=== PATIENT | female | born 1940 | race Caucasian/White ===

== ENCOUNTER 2024-02-13 13:26 | Outpatient (AMB) | payer MEDICARE, SELFPAY ==
--- NOTE | 2024-02-13 13:36 | HO.NEPHOV_ITS ---
HPI HPI Comments History of Present Illness Details I had the privilege of seeing Caren in follow-up of her chronic kidney disease. She has no history of diabetes mellitus or hypertension. She does not use any herbs. She does not take any excessive nonsteroidal anti- inflammatories. She denies having dysuria, hematuria, flank pain. She has remote history of hepatitis C which was treated. Her mother's brother had renal issues. She denies taking any anti-inflammatory medications. She does not have any nausea, vomiting, diarrhea, pedal edema or orthostatic symptoms. She maintains good hydration. She feels well. [facility] Medical History (Updated 02/13/24 @ 13:48 by Terra Bailey MA) CKD (chronic kidney disease) stage 3, GFR 30-59 ml/min Surgical History (Updated 02/13/24 @ 13:48 by Terra Bailey MA) History of hysterectomy Family History (Updated 02/13/24 @ 13:49 by Terra Bailey MA) Daughter Breast cancer Mother Abdominal aneurysm Father Meningitis Sister COPD (chronic obstructive pulmonary disease) Social History Alcohol intake: former Patient Tobacco Use Status: Never used Tobacco Vital Signs 02/13/24 13:38 Height 5 ft 6 in Weight 145 lb 2 oz BMI 23.4 BP 130/70 Blood Pressure Location Lt brachial Position Sitting Pulse 74 Pulse Source Pulse Oximeter Pulse Oximetry (%) 96 Oxygen Delivery Method Room Air Physical Exam Const General: comfortable and no acute distress Orientation/consciousness: patient oriented x3 HEENT Head: Yes normocephalic Mouth: Normal oral and palatal mucosa present Eyes EOM: EOMs intact bilaterally Neck Neck: Yes supple Resp Auscultation: clear to auscultation bilaterally Cardio Jugular venous distension: no JVD Rate: regular rate GI Palpation (GI): Soft to palpation Auscultation: normal bowel sounds General: Yes no CVA tenderness Back/Spine/Pelvis Back: no CVA tenderness Skin General skin exam: no rashes or lesions noted Neuro General: patient oriented x3 and moves all extremities Extrem General: Yes no pedal edema Assessment & Plan Assessment & Plan (1) CKD (chronic kidney disease) stage 3, GFR 30-59 ml/min: Code(s): N18.30 - Chronic kidney disease, stage 3 unspecified Qualifiers: Chronic kidney disease stage 3 subtype: stage 3a (GFR 45-59) Qualified Code(s): N18.31 - Chronic kidney disease, stage 3a Carla Fabian has mild CKD. It probably is due to loss of GFR due to unknown renal insult the past along with age-related loss of renal function. Her serum creatinine was 1.24 in 2019, 1.29 in 2021 and 1.20 in 2022. Her blood pressure has been normal. She has no history of proteinuria. Previous renal ultrasound showed right kidney of 8.7 cm and left kidney of 8.3 cm. She avoids nonsteroidal anti-inflammatories and maintain good hydration. She has mild atherosclerotic vascular disease on her lower extremities. Her calcium and phosphorus were normal in the past. Repeat blood work & 24 hour urine for GFR ordered. Answered all questions. Follow-up appointment given. Orders: Orders Electrolytes Today N18.31 - Chronic kidney disease, stage 3a Phosphorus Today N18.31 - Chronic kidney disease, stage 3a Immunofixation Pnl, Serum Today N18.31 - Chronic kidney disease, stage 3a Creatinine Today N18.31 - Chronic kidney disease, stage 3a Blood Urea Nitrogen Today N18.31 - Chronic kidney disease, stage 3a Calcium Today N18.31 - Chronic kidney disease, stage 3a Parathyroid Hormone Intact Today N18.31 - Chronic kidney disease, stage 3a Creatinine Clearance Urine Today N18.31 - Chronic kidney disease, stage 3a Vitamin D 25-OH Total Today N18.31 - Chronic kidney disease, stage 3a Coding Level of Care Code Est Pt Level 4 (69164) Diagnoses Stage 3a chronic kidney disease N18.31 Chronic kidney disease stage 3 subtype: stage 3a (GFR 45-59) Results Reviewed Nephrology Results: No Data to Display
[2024-02-13 13:38] VITALS: BP 130/70; PULSE 74; O2SAT 96; BMI 23.4
== END 2024-02-13 14:30 | disposition home or self-care (01) ==
PROVIDERS: Visit Provider Internal Medicine Nephrology
DX: N18.31 Chronic kidney disease, stage 3a (principal)
CPT/HCPCS: 99214

== ENCOUNTER → 2024-02-13 13:26 | Outpatient (BNVA) | payer MEDICARE, SELFPAY | PROVIDERS: Visit Provider Internal Medicine Nephrology | DX: N18.31 Chronic kidney disease, stage 3a (principal) | CPT/HCPCS: 99212 ==

== ENCOUNTER 2024-02-13 14:39 | Outpatient (REF) | payer MEDICARE, SELFPAY | END 2024-02-13 14:40 | disposition home or self-care (01) | LOC: HO.HKASLDS 14:39 | PROVIDERS: Visit Provider Internal Medicine Nephrology | DX: Z13.89 Encounter for screening for other disorder (principal) ==

== ENCOUNTER 2024-08-06 13:14 | Outpatient (AMB) | payer MEDICARE, SELFPAY ==
--- NOTE | 2024-08-06 13:18 | HO.NEPHOV ---
Vital Signs 08/06/24 13:35 Height 5 ft 6 in Weight 143 lb 6 oz BMI 23.1 BP 122/68 Blood Pressure Location Lt brachial Position Sitting Pulse 73 Pulse Source Pulse Oximeter Pulse Oximetry (%) 98 Oxygen Delivery Method Room Air Intake Visit Reasons: 6 Month F/U- Conf Program Director Required: No Accompanied by: Self / Same As Patient Allergies No Known Allergies Allergy (Verified 08/06/24 13:37) HPI Comments Details: Caren was seen in follow-up of her chronic kidney disease. She has no history of diabetes mellitus or hypertension. She does not take any excessive nonsteroidal anti-inflammatories. She denies having dysuria, hematuria, flank pain. She has remote history of hepatitis C which was treated. Her mother's brother had renal issues. She denies taking any anti-inflammatory medications. She does not have any nausea, vomiting, diarrhea, pedal edema or orthostatic symptoms. She maintains good hydration. She feels well [facility] Medical History (Updated 02/13/24 @ 13:48 by Terra Bailey MA) CKD (chronic kidney disease) stage 3, GFR 30-59 ml/min Surgical History History of hysterectomy Family History Daughter Breast cancer Mother Abdominal aneurysm Father Meningitis Sister COPD (chronic obstructive pulmonary disease) Social History Alcohol intake: former Patient Tobacco Use Status: Never used Tobacco Review of Systems Const All systems reviewed & are unremarkable except as noted in HPI and below Physical Exam Vital Signs: Last Vital Signs Pulse 73 08/06/24 13:35 BP 122/68 08/06/24 13:35 Pulse Ox 98 08/06/24 13:35 Oxygen Delivery Method Room Air 08/06/24 13:35 BMI result Body Mass Index 23.1 Const General: comfortable and no acute distress Orientation/consciousness: patient oriented x3 HEENT Head: Yes normocephalic Mouth: Normal oral and palatal mucosa present Eyes EOM: EOMs intact bilaterally Neck Neck: Yes supple Resp Auscultation: clear to auscultation bilaterally Cardio Jugular venous distension: no JVD Rate: regular rate GI Palpation (GI): Soft to palpation Auscultation: normal bowel sounds General: Yes no CVA tenderness Back/Spine/Pelvis Back: no CVA tenderness Skin General skin exam: no rashes or lesions noted Neuro General: patient oriented x3 and moves all extremities Extrem General: Yes no pedal edema Results Reviewed Nephrology Results: No Data to Display Assessment & Plan Assessment & Plan (1) CKD (chronic kidney disease) stage 3, GFR 30-59 ml/min: Code(s): N18.30 - Chronic kidney disease, stage 3 unspecified Category: Medical Qualifiers: Chronic kidney disease stage 3 subtype: stage 3a (GFR 45-59) Qualified Code(s): N18.31 - Chronic kidney disease, stage 3a Plan Caren has CKD 3a. It probably is due to loss of GFR due to unknown renal insult the past along with age-related loss of renal function. She likely had renovascular disease given H/O PAD. Her serum creatinine was 1.24 in 2019, 1.29 in 2021 and 1.20 in 2022. Her blood pressure has been normal. She has no history of proteinuria. Previous renal ultrasound showed right kidney of 8.7 cm and left kidney of 8.3 cm. She avoids nonsteroidal anti-inflammatories and maintain good hydration. She has mild atherosclerotic vascular disease on her lower extremities. Her calcium and phosphorus were normal in the past. Her renal functions are stable. 24 hour urine for GFR is around 40 mls/minute. I did not make any medication changes today. All questions answered. Orders: Orders Creatinine 8 Months N18.31 - Chronic kidney disease, stage 3a Electrolytes 8 Months N18.31 - Chronic kidney disease, stage 3a Blood Urea Nitrogen 8 Months N18.31 - Chronic kidney disease, stage 3a Calcium 8 Months N18.31 - Chronic kidney disease, stage 3a Coding Level of Care Code Est Pt Level 4 (48176) Diagnoses Stage 3a chronic kidney disease N18.31 Chronic kidney disease stage 3 subtype: stage 3a (GFR 45-59)
[2024-08-06 13:35] VITALS: BP 122/68; PULSE 73; O2SAT 98; BMI 23.1
== END 2024-08-06 14:07 | disposition home or self-care (01) ==
PROVIDERS: Visit Provider Internal Medicine Nephrology
DX: N18.31 Chronic kidney disease, stage 3a (principal)
CPT/HCPCS: 99214

== ENCOUNTER → 2024-08-06 13:14 | Outpatient (BNVA) | payer MEDICARE, SELFPAY | PROVIDERS: Visit Provider Internal Medicine Nephrology | DX: N18.31 Chronic kidney disease, stage 3a (principal) | CPT/HCPCS: 99212 ==

== ENCOUNTER 2025-03-20 11:12 | Outpatient (REF) | payer MEDICARE, SELFPAY ==
--- OUTSIDE RECORDS SUMMARY | 2025-03-20 12:27 | XMS_ITS | Encounter Summary ---
Author Organization [facility] Address [address] [place] [address] Care Team Providers Care Vice Investigator Name Role Phone Dannie Coleman MD Unavailable Unavailable Jerry Taylor MD Primary Care Provider [phone] Encounter Details Date Type Department Care Team Description 08/15/2023 Orders Only Medical Records [address] [place] [address] Abstract, Provider Social History Tobacco Use Types Packs/Day Years Used Date Smoking Tobacco: Never Smokeless Tobacco: Never Alcohol Use Standard Drinks/Week Comments Yes 0 (1 standard drink = 0.6 oz pure alcohol) 2-3 times a week - 1 glass of wine Sex Assigned at Date Recorded Female 09/06/2020 6:[address] Job Start Date Occupation Industry Not on file Not on file Not on file documented as of this encounter Plan of Treatment Not on file documented as of this encounter Procedures Procedure Name Priority Date/Time Associated Diagnosis Comments OUTSIDE LAB Routine 08/07/2023 documented in this encounter Results * OUTSIDE LAB (08/07/2023) Provider Abstract LAB documented in this encounter Visit Diagnoses Not on filedocumented in this encounter Care Teams Vice Investigator Relationship Specialty Start Date End Date Dannie Coleman MD PCP - Manager Of Purchasing 02/11/10 Jerry Taylor MD [address] [place] [address] PCP - General Internal Medicine 01/22/18 documented as of this encounter
--- OUTSIDE RECORDS SUMMARY | 2025-03-20 12:27 | XMS_ITS | Encounter Summary ---
Author Organization [facility] Address [address] [place] [address] Care Team Providers Care Broach Operator Name Role Phone Jerry Taylor MD Primary Care Provider [phone] Encounter Details Date Type Department Care Team (Late st Contact Info) Description 08/19/2024 2:53 PM EDT Hospital Encounter TH HISTORIC ENCOUNTERS [facility]ASTERN CONVERSION ONLY Paul Emmanuel MD [address] [place] [id number] Social History Tobacco Use Types Packs/Day Years Used Date Smoking Tobacco: Never Assessed Housing Instability Answer Date Recorde d Are you worried that in the next 2 months you may not have stable housing? No 02/24/2025 Food Access & Nutrition Answer Date Rec orded Do you have access to a vari ety of food including fruits and vegetables? Yes 02/24/2025 Access to Healthcare Answer Date Record ed Within the last 3 months, ho w many times did you visit the emergency department for your medical care? 0 02/24/2025 Health Literacy Answer Date Recorded How often do you need to hav e someone help you when you read instructions, pamphlets, or other written material from your doctor or pharmacy? Never 02/24/2025 Caregiver: How often do you need to have someone help you when you read instructions, pamphlets, or other written material from your doctor or pharmacy? Not on file 02/24/2025 Financial Risk Answer Date Recorded How hard is it for you to pa y for the very basics like food, housing, medical care, and air conditioning / heating? Not very hard 02/24/2025 Transportation Answer Date Recorded Has the lack of transportati on kept you from meetings, work, or from getting things needed for daily living? No Has the lack of transportati on kept you from medical appointments or from getting medications? No 02/24/2025 Social Isolation Answer Date Recorded How often do you feel lonely or isolated from th ose around you? Never 02/24/2025 Food Risk Answer Date Recorded Within the past 12 months we worried whether our food would run out before we got money to buy more. Never true 02/24/2025 Within the past 12 months th e food we bought just didn't last and we didn't have money to get more. Never true 02/24/2025 Dependent Care Answer Date Recorded Do you need help finding or paying for care for your loved ones. For example, child support officer or elderly care for an older adult? No 02/24/2025 Education Answer Date Recorded Do you think completing more education or training, like finishing a GED, going to college, or learning a trade, would be helpful for you? No 02/24/2025 Employment and Income Answer Date Recor ded During the last four weeks, have you been actively looking for work? No 02/24/2025 Living Situation Answer Date Recorded What is your living situation? 0 02/24/2025 Interpersonal Safety Answer Date Record ed Physical Abuse 11/26/2024 Verbal Abuse 11/26/2024 Comments Unknown Sex and Gender Information Value Date Recorded Sex Assigned at Female 10/16/2024 11:48 AM EST Legal Sex Female 12:00 AM EST Gender Identity Female 10/16/2024 11:48 AM EST Sexual Orientation Straight 11/15/2024 5: 08 PM EST documented as of this encounter Last Filed Vital Signs Vital Sign Reading Time Taken Comments Blood Pressure 135/94 08/19/2024 3:09 PM EDT Sit ting Left arm Pulse 71 08/19/2024 3:09 PM EDT Temperature - - Respiratory Rate - - Oxygen Saturation - - Inhaled Oxygen Concentration - - Weight 66.2 kg (146 lb) 08/19/2024 3:09 PM EDT Height 167.6 cm (5' 6 ) 08/19/2024 3:09 PM EDT Body Mass Index 23.56 08/19/2024 3:09 PM EDT documented in this encounter Progress Notes * Paul Emmanuel MD - 08/19/2024 3:15 PM EDT Dear Jerry, Thank you very much for referring this patient for consultation. HPI: Patient is a very pleasant 83-year-old female, who is basically healthy, found to have mild persistent macrocytosis, without any significant anemia, patient had initial anemia workup which is unremarkable, patient referred to me for evaluation of her macrocytosis, patient denies any signif icant prior history any family history of hematological disorder ROS: GENERAL: No anorexia, intentional weight loss, fever, chills, night sweats or any significant fatigue HEENT no headache no visual symptom NECK: No lumps, goiter, pain or significant neck swelling RESPIRATORY: No significant cough or shortness of breath CARDIOVASCULAR: No chest pain. GI: No abdominal discomfort, blood in stools or black stools MUSCULOSKELETAL: No joint pain or swelling, back pain, or muscle pain. 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 aspirin EC 81 MG tablet, Take 1 tablet (81 mg total) by mouth daily., Disp: , Rfl: ??? levothyroxine (SYNTHROID) tablet 75 mcg, Take 1 tablet (75 mcg total) by mouth every morning je empty stomach., Disp: , Rfl: ??? venlafaxine (EFFEXOR) 75 MG tablet, Take 1 tablet (75 mg total) by mouth 2 (two) times a day., Disp: , Rfl: You are allergic to the following Date Reviewed: 08/19/2024 No active allergies PHYSICAL EXAM: BP (!) 135/94 (BP Location: Left arm) Pulse 71 Temp 97.8 ??F (36.6 ??C) (Temporal) Ht 5' 6 (1.676 m) Wt 66.2 kg (146 lb) SpO2 100% BMI 23.57 kg/m?? ECOG 0 APPEARANCE: Alert and oriented in no acute distress EYES: nonicteric sclera pink conjunctiva NECK: no significant palpable lymph node ORAL CAVITY: No erythema or exudates NECK: Neck supple, no cervical and supraclavicular adenopathy, HEART: normal S1 and S2 LUNG: clear to auscultation bilaterally LYMPH NODES: No palpable superficial adenopathy ABDOMEN: soft, nontender and no organomegaly appreciated. EXTREMITIES: No edema erythema or tenderness LABS: WBC 4.8, hemoglobin 13.2 g, hematocrit 42%, MCV 104.5 and platelet count 213 Folate more than 20 B12 level [address](R) 1. Macrocytosis MACROCYTOSIS Patient is a very pleasant 83-year-old female who has mild to moderate persistent macrocytosis without any significant anemia, patient has no B12 and folate deficiency, patient is not significantly symptomatic for anemia or has anemia. Most likely her macrocytosis is because of maturationdefect which is not uncommon after age 77 other possibility include her previous history of alcohol abuse but that was about 20 years ago, I gave her reassurance I told her she does not have mild dysplasia or any significant hematological issues but I would like to review peripheral smear as well as repeat B12 folate as well as liver function etc. and I will see her back in next 2 to 3 weeks for any further intervention if needed PLAN: Above labs today, return to office in 2 to 3 weeks for any further intervention Paul Emmanuel MD cc: Jerry Taylor MD documented in this encounter Plan of Treatment Upcoming Encounters Date Type Department Care Team (Late st Contact Info) Description 04/23/2025 2:45 PM EDT Office Visit [facility] [address] [place] [id number] Whitney Adames MD [address] [place] [address] 07/25/2025 1:00 PM EDT Office Visit Internal Medicine - [address] [phone] Jerry Taylor MD [address] [place] [id number] documented as of this encounter Visit Diagnoses Not on filedocumented in this encounter Care Teams Broach Operator Relationship Specialty Start Date End Date Jerry Taylor MD [address] [place] [id number] PCP - General 07/16/24 documented as of this encounter
--- OUTSIDE RECORDS SUMMARY | 2025-03-20 12:27 | XMS_ITS | Clinical Summary ---
Author Organization [facility] Address [address] [place] [address] Care Team Providers Care Waiter/Waitress First Class Name Role Phone Dannie Coleman MD [facility] Jerry Taylor MD Primary Care Provider [phone] Allergies No known active allergies Medications Medication Sig Dispensed Refills Start Date End Date Status levothyroxine (SYNTHROID, LEVOTHROID) 75 MCG tablet Take 75 mcg by mouth daily. 0 Active venlafaxine (EFFEXOR-XR) 75 MG 24 hr capsule Take 1 Capsule by mouth daily. 0 04/18/2023 Active aspirin 81 MG EC tabletIndications:PAD (peripheral artery disease) ([facility]) Take 1 Tablet by mouth daily. 30 Tablet 5 01/09/2024 Active Active Problems Problem Noted Date Medical orders for life-sustaining treat ment (MOLST) form in chart 07/11/2023 Overview: MOLST form completed 07/11/2023 Cardiopulmonary resuscitation - do not resuscitate Ventilation for a patient in respiratory distress - intubate and ventilate and use noninvasive ventilation (CPAP) - SHORT TERM ONLY Transfer to hospital - do not transfer to hospital (unless needed for comfort) Dialysis - undecided Artificial nutrition - no artificial nutrition Artificial hydration - use artificial hydration but short term only PAD (peripheral artery disease) 07/11/20 Overview: 20-49% bilaterally 06/2023 Anxiety disorder 04/16/2018 Overview: External telehealth psych. Cataract of both eyes 04/16/2018 History of basal cell carcinoma 04/16/20 Overview: 01/21/09 L upper chest CKD (chronic kidney disease) stage 3, GF R 30-59 ml/min 04/16/2018 Diverticulosis of colon 04/16/2018 Hyperlipidemia 04/16/2018 Hypothyroidism 04/16/2018 Overview: LEvothyroxine 75 mcg History of squamous cell carcinoma 04/16 Overview: 04/08/11 distal L leg Fatty liver 04/16/2018 History of hepatitis C 04/16/2018 Depression 04/16/2018 Raynaud's disease 04/16/2018 History of traumatic fracture of lumbar vertebral body 04/16/2018 Panic disorder without agoraphobia 04/16 History of cervical dysplasia 04/16/2018 Resolved Problems Problem Noted Date Resolved Date History of rib fracture 04/16/2018 10/18/20 Overview: Closed rib fracture Immunizations Name Administration Dates Next Due Pneumoccoccal(Adult) Polysaccharide PPSV23 04/25 Pneumococcal Conjugate PCV-13 03/23/2015 Tdap 04/25/2018 Family History Medical History Relation Name Comments CAD Brother Anxiety CA Breast Daughter Metastatic age 46. Anxiety Meningitis Father Aortic Aneurysm Mother Anxiety Heart Disease Sister Heart Disease Son Stroke Relation Name Status Comments Brother Daughter Father Mother Sister Son Social History Tobacco Use Types Packs/Day Years Used Date Smoking Tobacco: Never Smokeless Tobacco: Never Tobacco Cessation:Counseling Given: Not Answered Alcohol Use Standard Drinks/Week Comments Yes 0 (1 standard drink = 0.6 oz pure alcohol) 2-3 times a week - 1 glass of wine Sex Assigned at Date Recorded Female 09/06/2020 6:59 PM EST Job Start Date Occupation Industry Not on file Not on file Not on file Last Filed Vital Signs Vital Sign Reading Time Taken Comments Blood Pressure 125/73 08/28/2024 9:33 AM EDT Pulse 69 08/28/2024 9:33 AM EDT Temperature 37.1 ??C (98.7 ??F) 10/18/2018 1:13 PM ES T Respiratory Rate 16 08/23/2023 2:31 PM EDT Oxygen Saturation 98% 06/24/2022 11:14 AM EDT Inhaled Oxygen Concentration - - Weight 64.9 kg (143 lb) 08/28/2024 9:33 AM EDT Height 167.6 cm (5' 6 ) 08/28/2024 9:33 AM EDT Body Mass Index 23.08 08/28/2024 9:33 AM EDT Plan of Treatment Health Maintenance Due Date Last Done Comments Covid-19 Vaccine (#1) 03/09/1941 MAMMOGRAM 09/18/2024 09/18/2023, 12/2021, 09/01/2021, Additional history exists INFLUENZA (Season Ended) 2025 10/18/2018 (Refu sed) DEPRESSION SCREEN 07/11/2025 07/11/2024, , 06/24/2022, Additional history exists FALL RISK ASSESSMENT 07/11/2025 07/11/2024 (Completed), 07/11/2023 (Completed), 06/24/2022 (Completed), Additional history exists BONE DENSITY SCREENING 08/17/2025 , 07/03/2018, 05/29/2015 (External Completion) DTAP/TDAP/TD (2 - Td or Tdap) 04/25/2028 04/25/2018 CHOLESTEROL SCREENING 01/08/2029 01/09/2024 , 05/31/2023, 05/25/2022, Additional history exists PNEUMOCOCCAL VACCINE Completed 04/25/2018, 03/23/20 15 SHINGLES VACCINE Discontinued Advance Directives For more information, please contact: [phone] Documents on File Type Date Recorded Patient Forepart Reducer Expl al[facility] Health Care Proxy 03/21/2023 8:18 AM HEALT H CARE PROXY Latest Code Status on File Code Status Date Activated Date Inactivated Comments Other - see comment 07/11/2023 11:[address] form completed 07/11/2023 Cardiopulmonary resuscitation - do not resuscitate Ventilation for a patient in respiratory distress - intubate and ventilate and use noninvasive ventilation (CPAP) - SHORT TERM ONLY Transfer to hospital - do not transfer to hospital (unless needed for comfort) Dialysis - undecided Artificial nutrition - no artificial nutrition Artificial hydration - use artificial hydration but short term only Care Teams Waiter/Waitress First Class Relationship Specialty Start Date End Date Dannie Coleman MD PCP - Technical Support Internship 02/11/10 Jerry Taylor MD [address] [place] [id number] PCP - General Internal Medicine 01/22/18
--- OUTSIDE RECORDS SUMMARY | 2025-03-20 12:27 | XMS_ITS | Encounter Summary ---
Author Organization [facility] Address [address] [place] [address] Care Team Providers Care Vocational Teacher Name Role Phone Jerry Taylor MD Primary Care Provider [phone] Encounter Details Date Type Department Care Team (Late st Contact Info) Description 08/19/2024 3:15 PM EDT Hospital Encounter TH HISTORIC ENCOUNTERS EASTERN CONVERSION ONLY Paul Emmanuel MD [address] [place] [address] Social History Tobacco Use Types Packs/Day Years Used Date Smoking Tobacco: Never Smokeless Tobacco: Never Alcohol Use Standard Drinks/Week Comments Yes 0 (1 standard drink = 0.6 oz pur e alcohol) socially Housing Instability Answer Date Recorde d Are [...] for your loved ones. For example, child protective services specialist or elderly care for an older adult? [...] Physical Abuse 11/26/2024 Verbal Abuse 11/26/2024 Comments No Sex and Gender Information Value Date Recorded Sex Assigned at Female 10/16/2024 11:48 AM EST Legal Sex Female 12:00 AM EST Gender Identity Female 10/16/2024 11:48 AM EST Sexual Orientation Straight 11/15/2024 5: 08 PM EST documented as of this encounter Plan of Treatment Upcoming Encounters Date Type Department Care Team (Late st Contact Info) Description 04/23/2025 2:45 PM EDT Office Visit Breast Care Center [facility] [address] [place] [address] Whitney Adames MD [address] [place] [address] 07/25/2025 1:00 PM EDT Office Visit Internal Medicine - [address] [address] Jerry Taylor MD [address] [place] [address] documented as of this encounter Visit Diagnoses Not on filedocumented in this encounter Care Teams Vocational Teacher Relationship Specialty Start Date End Date Jerry Taylor MD [address] [place] [id number] PCP - General 07/16/24 documented as of this encounter
--- OUTSIDE RECORDS SUMMARY | 2025-03-20 12:27 | XMS_ITS | Encounter Summary ---
Author Organization [facility] Address [address] [place] [address] Care Team Providers Care Nursing Home Assistant Name Role Phone Dannie Coleman MD [facility] Jerry Taylor MD Primary Care Provider [phone] Encounter Details Date Type Department Care Team Description 02/12/2023 Marketing Analyst Report Medical Records [address] [place] [address] Triston Underwood MD Social History Tobacco Use Types Packs/Day Years [...] on file documented as of this encounter Visit Diagnoses Not on filedocumented in this encounter Care Teams Nursing Home Assistant Relationship Specialty Start Date End Date Dannie Coleman MD PCP - [facility] [employer] 02/11/10 Jerry Taylor MD [address] [place] [id number] PCP - General Internal Medicine 01/22/18 documented as of this encounter
--- OUTSIDE RECORDS SUMMARY | 2025-03-20 12:27 | XMS_ITS | Clinical Summary ---
Author Organization [facility] Address [address] [place] [address] Care Team Providers Care Fire Lieutenant Name Role Phone Jerry Taylor MD Primary Care Provider [phone] Allergies No known active allergies Medications Medication Sig Dispensed Refills Start Date End Date Status levothyroxine (SYNTHROID) tablet 75 mcg Take 1 tablet (75 mcg total) by mouth every morning on an empty stomach. 0 Active venlafaxine (EFFEXOR) 75 MG tablet Take 1 tablet (75 mg total) by mouth 2 (two) times a day. 0 Active aspirin EC 81 MG tablet Take 1 tablet (81 mg total) by mouth daily. 0 Active Active Problems No known active problems Family History Medical History Relation Name Comments Breast cancer Child Gallbladder disease Sister Relation Name Status Comments Child Sister Social History Tobacco Use Types Packs/Day Years Used Date Smoking Tobacco: Never Smokeless Tobacco: Never Tobacco Cessation:Counseling Given: Not Answered Alcohol Use Standard Drinks/Week Comments Not Currently 0 (1 standard drink = 0.6 oz pur e alcohol) Sex and Gender Information Value Date Recorded Sex Assigned at Not on file Gender Identity Not on file Sexual Orientation Not on file Job Start Date Occupation Industry Not on file Not on file Not on file Last Filed Vital Signs Vital Sign Reading Time Taken Comments Blood Pressure 129/73 09/04/2024 1:17 PM EDT Pulse 69 09/04/2024 1:17 PM EDT Temperature 37.2 ??C (98.9 ??F) 09/04/2024 1:17 PM ED T Respiratory Rate - - Oxygen Saturation 100% 09/04/2024 1:17 PM EDT Inhaled Oxygen Concentration - - Weight 64 kg (141 lb) 09/04/2024 1:17 PM EDT Height 167.6 cm (5' 6 ) 08/19/2024 3:09 PM EDT Body Mass Index 22.76 08/19/2024 3:09 PM EDT Plan of Treatment Health Maintenance Due Date Last Done Comments COVID-19 Vaccine (#1) 03/09/1941 Depression Screening 1954 Preventative Health Evaluation 1960 Shingrix-Zoster Vaccine (1 o f 2) 1992 Fall Risk Assessment 2007 Osteoporosis Screening (DEXA Scan) 2007 RSV Adult > 60+ Yrs or (1 - 1-dose 75+ series) 2017 Influenza Vaccine (#1) 2024 DTap / Tdap / Td (2 - Td or Tdap) 04/25/2028 04/25/2018 Pneumococcal Vaccine Completed 04/25/2018, 03/23/2015 Hepatitis B Vaccines Aged Out No long er eligible based on patient's age to complete this topic RSV Ped < 20 months Aged Out No longe r eligible based on patient's age to complete this topic Care Teams Fire Lieutenant Relationship Specialty Start Date End Date Jerry Taylor MD [address] [place] [address] PCP - General Internal Medicine 07/16/24
--- OUTSIDE RECORDS SUMMARY | 2025-03-20 12:27 | XMS_ITS | Encounter Summary ---
Author Organization [facility] Address [address] [place] [address] Care Team Providers Care Lead Mechanical Engineer Name Role Phone Dannie Coleman MD Unavailable Unavailable Jerry Taylor MD Primary Care Provider [phone] Encounter Details Date Type Department Care Team Description 07/29/2024 Orders Only Vascular Surgery - [place] [address] [place] [address] Shavon Rudolph MD [address] [facility] [address] [place] [address] PAD (peripheral artery disease) (HCC) Social History Tobacco Use Types Packs/Day Years [...] Procedure Name Priority Date/Time Associated Diagnosis Comments LOWER EXTREMITY ARTERY STUDY, COMPL WITH ROLAND Routine 07/26/2024 PAD (peripheral artery disease) (HCC) documented in this encounter Results * LOWER EXTREMITY ARTERY STUDY, COMPL WITH ROLAND (07/26/2024) 07/26/2024 Shavon Rudolph MD VASCULAR ULTRASO UND documented in this encounter Visit Diagnoses Diagnosis PAD (peripheral artery disease) (HCC) Unspecified disorders of arteries and arterioles documented in this encounter Care Teams Lead Mechanical Engineer Relationship Specialty Start Date End Date Dannie Coleman MD PCP - Lead Technical Writer 02/11/10 Jerry Taylor MD [address] [place] [phone] PCP - General Internal Medicine 01/22/18 documented as of this encounter
--- OUTSIDE RECORDS SUMMARY | 2025-03-20 12:27 | XMS_ITS | Encounter Summary ---
Author Organization [facility] Address [address] [place] [address] Care Team Providers Care Network Developer Name Role Phone Jerry Taylor MD Primary Care Provider [phone] Encounter Details Date Type Department Care Team (Late st Contact Info) Description 09/04/2024 1:01 PM EDT Hospital Encounter TH HISTORIC ENCOUNTERS EASTERN CONVERSION ONLY Paul Emmanuel MD [address] [place] [phone] Social History Tobacco Use Types Packs/Day Years [...] for your loved ones. For example, child neurologist or elderly care for an older adult? [...] Blood Pressure 129/73 09/04/2024 1:17 PM EDT Sitting Right arm Pulse 69 09/04/2024 1:17 PM EDT Temperature - - Respiratory Rate - - Oxygen Saturation - - Inhaled Oxygen Concentration - - Weight 64 kg (141 lb) 09/04/2024 1:17 PM EDT Height 167.6 cm (5' 6 ) 08/19/2024 3:09 PM EDT Body Mass Index 22.76 08/28/2024 9:33 AM EDT documented in this encounter Progress Notes * Paul Emmanuel MD - 09/04/2024 1:15 PM EDT CHIEF COMPLAINT: Follow-up IDENTIFIER:Caren Clayton is a 83 y.o. female. HPI: Patient is a very pleasant 83-year-old female who came for evaluation on macrocytosis couple weeks ago, my hematology workup is basically unremarkable for any underlying reason for her mildmacrocytosis without anemia ROS: Has been feeling very well No significant change from previous visit of 08/19/2024 PAST MEDICAL HISTORY: Peripheral vascular disease Chronic insufficiency Hypothyroidism Dyslipidemia Squamous cell carcinoma of the skin Anxiety/depression disorder Renal disease History of cervical dysplasia ? PAST SURGICAL HISTORY: Hysterectomy Mohs surgery ?? 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 FAMILY HISTORY: Noncontributory Current Outpatient Medications: ??? aspirin EC 81 [...] are allergic to the following Date Reviewed: 09/04/2024 No active allergies PHYSICAL EXAM: BP 129/73 (BP Location: Right arm) Pulse 69 Temp 98.9 ??F (37.2 ??C) (Temporal) Wt 64 kg (141lb) SpO2 100% BMI 22.76 kg/m?? ECOG 0 APPEARANCE: Alert and oriented x 3 in no acute distress EYES: nonicteric sclera pink conjunctiva ORAL CAVITY: No erythema or exudates NECK: Neck supple, no significant adenopathy, HEART: normal S1 and S2 LUNG: clear to auscultation bilaterally LYMPH NODES: No palpable superficial adenopathy ABDOMEN: soft, nontender and no organomegaly appreciated EXTREMITIES: No edema edema tenderness LABS: B12 level 442 Folate 8.8 SGOT 21, SGPT 22 and alk phos 89 with total bilirubin of 0.3 WBC 6.7, hemoglobin 12.6 g, hematocrit 39.4%, MCV 103.7 and platelet count 202 Peripheral smear basically unremarkable IMPRESSION: SNOMED CT(R) 1. Macrocytosis MACROCYTOSIS After reviewing history physical laboratory data I do not think patient has any significant hematological disorder she has not mild persistent macrocytosis without any significant anemia, most likelynormal variant or may be maturation issues in the bone marrow but since she does not have anemia she does not need any further workup. I gave her reassurance regarding her not having any significant hematological disorder and does not need any further hematology workup or follow-up PLAN: Check CBC once a year if there is significant drop in hemoglobin that is less than 10 g, refer patient back to me otherwise she does not need any follow-up Paul Emmanuel MD documented in this encounter Plan of Treatment Upcoming Encounters Date Type Department Care Team (Late st Contact Info) Description 04/23/2025 2:45 PM EDT Office Visit Breast Care Center [facility] [address] [facility] [address] [place] [id number] Whitney Adames MD [address] [address] [facility] [place] [address] 07/25/2025 1:00 PM EDT Office Visit Internal Medicine - [facility] [address] [place] [address] Jerry Taylor MD [address] [place] [address] documented as of this encounter Procedures Procedure Name Priority Date/Time Associated Diagnosis Comments ..MISCELLANEOUS REFERENCE LAB TEST 09/04/2024 documented in this encounter Results * Miscellaneous reference lab test (09/04/2024) us Provider Onbase LAB BLOOD ORDERABLES Final Re sult documented in this encounter Visit Diagnoses Not on filedocumented in this encounter Care Teams Network Developer Relationship Specialty Start Date End Date Jerry Taylor MD [address] [place] [phone] PCP - General 07/16/24 documented as of this encounter
--- OUTSIDE RECORDS SUMMARY | 2025-03-20 12:27 | XMS_ITS | Encounter Summary ---
Author Organization [facility] Address [address] [place] [address] Care Team Providers Care Qualified Craft Worker Electrician Name Role Phone Dannie Coleman MD [facility] Jerry Taylor MD Primary Care Provider [phone] Encounter Details Date Type Department Care Team Description 08/03/2021 Robotic Technician Report Medical Records [address] [place] [address] Charlene Tamayo MD Social History Tobacco Use Types Packs/Day [...] on filedocumented in this encounter Care Teams Qualified Craft Worker Electrician Relationship Specialty Start Date End Date Dannie Coleman MD PCP - Catering Assistant 02/11/10 Jerry Taylor MD [address] [place] [id number] PCP - General Internal Medicine 01/22/18 documented as of this encounter
--- OUTSIDE RECORDS SUMMARY | 2025-03-20 12:27 | XMS_ITS | Encounter Summary ---
Author Organization [facility] Address [address] [place] [address] Care Team Providers Care Wire Coater Name Role Phone Dannie Coleman MD Unavailable Unavailable Jerry Taylor MD Primary Care Provider [phone] Encounter Details Date Type Department Care Team Description 08/07/2023 Elementary Educator Report Medical Records [address] [place] [address] Charlene Tamayo MD Social History Tobacco Use [...] file Not on file Not on file COVID-19 Exposure Response Date Recorded In the last 10 days, have yo u been in contact with someone who was confirmed or suspected to have Coronavirus/COVID-19? No / Unsure 07/11/2023 10:21 AM EDT documented as of this encounter Plan of Treatment Not on file documented as of this encounter Visit Diagnoses Not on filedocumented in this encounter Care Teams Wire Coater Relationship Specialty Start Date End Date Dannie Coleman MD PCP - Cotton Washer 02/11/10 Jerry Taylor MD [address] [place] [address] PCP - General Internal Medicine 01/22/18 documented as of this encounter
--- OUTSIDE RECORDS SUMMARY | 2025-03-20 12:27 | XMS_ITS | Clinical Summary ---
Author Organization [facility] Address [address] [place] [address] Phone Care Team Providers Care Practice Representative Name Role Phone Jerry Taylor MD Primary Care Provider [phone] [phone] Allergies No known active allergies Medications venlafaxine XR (EFFEXOR-XR) 75 mg 24 hr capsule Take 1 capsule (75 mg total) by mouth 1 (one) time each day. AT DINNER TIME 3 Active levothyroxine (SYNTHROID, LEVOTHROID) 75 mcg tablet 1 tablet orally six days/week, take 1/2 tab on , or as direted 2 Active ALPRAZolam (XANAX) 0.5 mg tablet Take 1 tablet (0.5 mg total) by mouth at bedtime as needed for anxiety. Active aspirin 81 mg EC tablet Take 1 tablet (81 mg total) by mouth 1 (one) time each day. Active gentamicin (GARAMYCIN) 0.1 % ointment Apply topically 3 (three) times a day. 4 Active betamethasone dipropionate (DIPROSONE) 0.05 % cream Apply topically 2 (two) times a day. 4 Active Active Problems Problem Noted Date Diagnosed Date Malignant neoplasm of upper- outer quadrant of left breast in female, estrogen receptor positive (CMS/HCC V24, CMS/HCC V28) 10/23/2024 Assessment & Plan (03/03/2025 3:13 PM EDT): Patient will continue follow-up with her breast surgeon. She is up-to-date with a follow-up with oncologist. Hypothyroidism due to medication 08/07/2023 Overview (07/19/2024): Last Assessment & Plan: Clinically euthyroid. Reports good consistency taking rx appropriately. Will check labs & adjust rx as appropriate. To call/message via portal if hasn't heard from me with results within 1-2 weeks. If levels normal, will repeat labs yearly, sooner prn symptoms of thyroid dysfunction or > 10-15# weight change, or as otherwise clinically indicated. PAD (peripheral artery disease) ([facility] V24) Overview (07/19/2024): 20-49% bilaterally 06/2023 PAD (peripheral artery disease) ([facility] V24) Overview (10/02/2024): 20-49% bilaterally 06/2023 Assessment & Plan (03/03/2025 3:13 PM EDT): For now, continue aspirin 81 mg daily. Encouraged walking. Anxiety disorder 04/16/2018 Overview (07/19/2024): External telehealth psych. Cataract of both eyes 04/16/2018 Depressive disorder 04/16/2018 Diverticulosis of colon 04/16/2018 Fatty liver 04/16/2018 Hyperlipidemia 04/16/2018 Assessment & Plan (03/03/2025 3:13 PM EDT): Follow low-cholesterol diet. Will monitor lipid panel. Orders: Lipid panel with reflex to direct LDL; Future Aspartate aminotransferase; Future Alanine aminotransferase; Future Hypothyroidism 04/16/2018 Overview (07/19/2024): LEvothyroxine 75 mcg Assessment & Plan (03/03/2025 3:13 PM EDT): Continue current levothyroxine. Panic disorder without agoraphobia 04/16/2018 Raynaud's disease 04/16/2018 Stage 3 chronic kidney disease ([facility] V24, [facility] V28) 04/16/2018 Assessment & Plan (03/03/2025 3:13 PM EDT): Avoid NSAIDs. She has an upcoming appoint with nephrology. Will monitor electrolytes. Orders: Basic metabolic panel; Future Encounters Date Type Department Care Team Description 03/03/2025 2:30 PM EDT Office Visit Internal Medicine - [facility] [address] [place] [address] Jerry Taylor MD Malignant neoplasm of upper-outer quadrant of left breast in female, estrogen receptor positive ([facility] [place], [facility] V28) (Primary Dx); PAD (peripheral artery disease) ([facility] V24); Stage 3 chronic kidney disease, unspecified whether stage 3a or 3b CKD ([facility], [facility] V28); Hypothyroidism, unspecified type; Hyperlipidemia, unspecified hyperlipidemia type; Memory impairment from Last 3 Months Immunizations Name Administration Dates Next Due Pneumococcal conjugate 13 va lent (Prevnar 13, PCV13) 2mo and older 03/23/2015 Pneumococcal polysaccharide 23 valent (Pneumovax 23) 2yo and older 04/25/2018 Tdap Tetanus diptheria acell ular pertussis (Boostrix; Adacel) 7yo and older 04/25/2018 Surgical History Surgery Date Site/Laterality Comments HYSTERECTOMY PROCEDURE: HISTORICAL TOTAL HYSTERECTOMY WITH BSO COLONOSCOPY PROCEDURE: HISTORICAL COLONOSCOPY; COMMENT: hyperplastic polyp COLONOSCOPY 04/10/2012 PROCEDURE: HISTORICAL COLONOSCOPY; COMMENT: 10 year repeat TOTAL ABDOMINAL HYSTERECTOMY Medical History Medical History Date Comments Anxiety disorder 04/16/2018 DX:Anxiety diso rder; COMMENT: Follows with Dr Caruso Cataract of both eyes 04/16/2018 DX:Catarac t of both eyes CKD (chronic kidney disease) stage 3, GFR 30-59 ml/min ([facility] V24, [facility] V28) 04/16/2018 DX:CKD (chronic kidney disea se) stage 3, GFR 30-59 ml/min ([facility]) Depression 04/16/2018 DX:Depression Diverticulosis of colon 04/16/2018 DX:Diver ticulosis of colon Fatty liver 04/16/2018 DX:Fatty liver History of basal cell carcinoma 04/16/2018 DX:History of basal cell carcinoma; COMMENT: 01/21/09 L upper chest History of cervical dysplasia 04/16/2018 DX :History of cervical dysplasia History of hepatitis C 04/16/2018 DX:Histor y of hepatitis C History of rib fracture 04/16/2018 DX:Histo ry of rib fracture; COMMENT: Closed rib fracture History of squamous cell carcinoma 04/16/2018 DX:History of squamous cell carcinoma; COMMENT: 04/08/11 distal L leg History of traumatic fractur e of vertebra 04/16/2018 DX:History of traumatic frac ture of vertebra Hyperlipidemia 04/16/2018 DX:Hyperlipidemi a Hypothyroidism 04/16/2018 DX:Hypothyroidis m; COMMENT: LEvothyroxine 75 mcg Panic disorder without agoraphobia 04/16/2018 DX:Panic disorder without agoraphobia Raynaud's disease 04/16/2018 DX:Raynaud's d isease Medical orders for life-sust aining treatment (MOLST) form in chart 07/11/2023 DX:Medical orders for life-sustaining treatment (MOLST) form in chart; COMMENT: MOLST form completed 07/11/2023 Cardiopulmonary resuscitation - do not resuscitate Ventilation for a patient in respiratory distress - intubate and ventilate and use noninvasive ventilation (CPAP) - SHORT TERM ONLY Transfer to hospital - do not transfer to hospital (unless needed for comfort) Dialysis - undecided Artific* PAD (peripheral artery disea se) ([facility] V24) 07/11/2023 DX:PAD (peripheral artery di sease) ([facility]); COMMENT: 2048% bilaterally Family History Medical History Relation Name Comments Coronary artery disease Brother Anxi ety Breast cancer Daughter Metastatic age 46. Anxiety Other: Meningitis Father Other: Aortic Aneurysm Mother Anxie ty Other: Heart Disease Sister Other: Heart Disease Son Stroke Relation Name Status [...] care for your loved ones. For example, early childhood worker or elderly care for an older adult? [...] Orientation Straight 11/15/2024 5: 08 PM EST Obstetrics History Last Filed Vital Signs Vital Sign Reading Time Taken Comments Blood Pressure 111/72 03/03/2025 2:39 PM EDT aut o Pulse 65 03/03/2025 2:39 PM EDT Temperature 36.7 ??C (98.1 ??F) 12/10/2024 2:03 PM ES T Respiratory Rate 20 11/26/2024 11:06 AM EST Oxygen Saturation 100% 12/10/2024 2:03 PM EST Inhaled Oxygen Concentration - - Weight 67.2 kg (148 lb 1.6 oz) 03/03/2025 2:39 P M EDT Height 167.6 cm (5' 6 ) 03/03/2025 2:39 PM EDT Body Mass Index 23.9 03/03/2025 2:39 PM EDT Plan of Treatment Upcoming Encounters Date Type Department Care Team (Late st Contact Info) Description 04/23/2025 2:45 PM EDT Office Visit Breast Care Center [facility] [address] [place] [id number] Whitney Adames MD [address] [place] [address] 07/25/2025 1:00 PM EDT Office Visit Internal Medicine - [facility] [address], [place] [phone] Jerry Taylor MD [address] [place] [phone] Health Maintenance Due Date Last Done Comments COVID-19 Vaccine (#1) 1945 Hepatitis A Vaccines (1 of 2 - Risk 2-dose series) 1961 Zoster Vaccines (1 of 2) 1961 Hepatitis B Vaccines (1 of 3 - Risk 3-dose series) 2002 RSV Immunization Adult Patients (1 - 1-dose 75+ series) 2017 Medicare Annual Wellness Visit 10/09/2022 Influenza Vaccine (Season Ended) 2025 Falls Risk Assessment 11/26/2025 11/26/2024 , 07/11/2024 Depression Screening 02/24/2026 02/24/2025, 07/11/2024 Social Influencers of Health Screening 02/24/2026 02/24/2025 DTaP,Tdap,and Td Vaccines (2 - Td or Tdap) 04/25/2028 04/25/2018 Cholesterol Screening (Lipid Panel) 03/05/2030 03/05/2025, 01/09/2024 Osteoporosis Screening (Bone Density Screening) 08/17/2033 08/17/2023, 07/03/2018 Pneumococcal Vaccine: 50+ Years Completed 04/25/2018, 03/23/2015 HIB Vaccines Aged Out No longer eligi ble based on patient's age to complete this topic HPV Vaccines Aged Out No longer eligi ble based on patient's age to complete this topic IPV Vaccines Aged Out No longer eligi ble based on patient's age to complete this topic MMR Vaccines Aged Out No longer eligi ble based on patient's age to complete this topic Meningococcal ACWY Vaccine Aged Out N o longer eligible based on patient's age to complete this topic Meningococcal B Vaccine Aged Out No l onger eligible based on patient's age to complete this topic RSV Immunization Patients Under 20 months Aged Out No longer eligible b ased on patient's age to complete this topic Varicella Vaccines Aged Out No longer eligible based on patient's age to complete this topic Medical Devices Implanted Type Area Family Practice Physician Device Identifier Shelf Expiration Date Model / Serial / Lot Marker Tissue Breast Dual Trig 17x10 Ultrasound Enhanced - [id number] - [id number] Implanted:Qty: 1 on 10/14/2024 by Jalen Loco MD at [facility] Imaging Implants Left: Breast CR BARD PERIPHERAL VASCULAR [id number] 06/02/2027 [id number] / [id number] / Marker 18ga Magseed 7cm - [id number] - [id number] Implanted:Qty: 1 on 11/20/2024 by Toni Cash MD at [facility] Imaging Implants Left: Breast DEVICOR [employer] [id number] 05/05/2026 [id number] / [id number] Procedures Procedure Name Priority Date/Time Associated Diagnosis Comments LIPID PANEL WITH REFLEX TO DIRECT LDL Routine 03/05/2025 10:19 AM EDT Hyperlipidemia, unspecified hyperlipidemia type BASIC METABOLIC PANEL Routine 03/05/2025 10:19 AM EDT Stage 3 chronic kidney disease, unspecified whether stage 3a or 3b CKD (CMS/HCC V24, CMS/HCC V28) ASPARTATE AMINOTRANSFERASE Routine 03/05/2025 10:19 AM EDT Hyperlipidemia, unspecified hyperlipidemia type ALANINE AMINOTRANSFERASE Routine 03/05/2025 10:19 AM EDT Hyperlipidemia, unspecified hyperlipidemia type DEPRESSION SCREENING Routine 07/11/2024 FALLS RISK ASSESSMENT Routine 07/11/2024 DXA BONE DENSITY STUDY 1+ SITS AXIAL SKEL Routine 08/17/2023 2:28 PM EDT Encounter for screening for osteoporosis from Last 3 Months or Most Recently Relevant to Health Maintenance Results * (ABNORMAL) Lipid panel with reflex to direct LDL (03/05/2025 10:19 AM EDT) [facility] Cholesterol 206(H) 0 - 200 mg/dL LAB CHEMISTRY METHOD 03/05/2025 7:38 PM EDT [facility] Triglycerides 93 0 - 150 mg/dL LAB CHEMISTRY METHOD 03/05/2025 7:38 PM EDT [facility] HDL 62 >=40 mg/dL LAB CHEMISTRY METHOD 03/05/2025 7:38 PM EDT [facility] LDL Calculated 125(H) 0 - 100 mg/dL LAB CHEMISTRY METHOD 03/05/2025 7:38 PM EDT [facility] VLDL Cholesterol Christopher 18.6 mg/dL LAB CHEMISTRY METHOD 03/05/2025 7:38 PM EDT [facility] Non HDL Chol. (LDL+VLDL) 144 <145 mg/dL LAB CHEMISTRY METHOD 03/05/2025 7:38 PM EDT [facility] Chol/HDL Ratio 3.3 0.0 - 4.4 LAB CHEMISTRY METHOD 03/05/2025 7:38 PM EDT [facility] Blood Venous blood specimen / Unknown Venipuncture / Unknown 03/05/2025 10:19 AM EDT 03/05/2025 10:19 AM EDT Jerry Taylor MD LAB BLOOD ORDERABLES Kallie l Result Performing Organization Address City/[facility]/ZIP Co de Phone Number [facility] [address] [place] [address], [place] [phone] * Alanine aminotransferase (03/05/2025 10:19 AM EDT) ALT (SGPT) 22 10 - 60 unit/L LAB CHEMISTRY METHOD 03/05/2025 7:34 PM EDT [facility] Blood Venous blood specimen / Unknown Venipuncture / Unknown 03/05/2025 10:19 AM EDT 03/05/2025 10:19 AM EDT Jerry Taylor MD LAB BLOOD ORDERABLES Kallie l Result [facility] [address] [place] [address], [place] [phone] * Aspartate aminotransferase (03/05/2025 10:19 AM EDT) AST (SGOT) 16 10 - 42 unit/L LAB CHEMISTRY METHOD 03/05/2025 7:38 PM [facility] Blood Venous blood specimen / Unknown Venipuncture / Unknown 03/05/2025 10:19 AM EDT 03/05/2025 10:19 AM EDT Jerry Taylor MD LAB BLOOD ORDERABLES Kallie l Result [facility] [address] [place] [address], * (ABNORMAL) Basic metabolic panel (03/05/2025 10:19 AM EDT) Sodium 137 133 - 145 mmol/L LAB CHEMISTRY METHOD 03/05/2025 7:34 PM [facility] Potassium 4.8 3.5 - 5.5 mmol/L LAB CHEMISTRY METHOD 03/05/2025 7:34 PM [facility] Chloride 106 96 - 110 mmol/L LAB CHEMISTRY METHOD 03/05/2025 7:34 PM [facility] CO2 24 21 - 32 mmol/L LAB CHEMISTRY METHOD 03/05/2025 7:34 PM [facility] Anion Gap 7 3 - 11 LAB CHEMISTRY METHOD 03/05/2025 7:34 PM [facility] Glucose 84 70 - 100 mg/dL LAB CHEMISTRY METHOD 03/05/2025 7:34 PM [facility] BUN 26(H) 5 - 25 mg/dL LAB CHEMISTRY METHOD 03/05/2025 7:34 PM [facility] Creatinine 1.27(H) 0.50 - 1.10 mg/dL LAB CHEMISTRY METHOD 03/05/2025 7:34 PM [facility] eGFR 42(L) >=60 mL/min/1. 73m2 LAB CHEMISTRY METHOD 03/05/2025 7:34 PM [facility] Comment:Calculation based on the??Chronic Kidney Disease Epidemiology Collaboration (CKD-EPI) equation refit??without adjustment for race. BUN/Creatinine Ratio 20.5 LAB CHEMISTRY METHOD 03/05/2025 7:34 PM EDT [facility] Calcium 9.3 8.5 - 10.5 mg/dL LAB CHEMISTRY METHOD 03/05/2025 7:34 PM EDT [facility] Blood Venous blood specimen / Unknown Venipuncture / Unknown 03/05/2025 10:19 AM EDT 03/05/2025 10:19 AM EDT Jerry Taylor MD LAB BLOOD ORDERABLES Kallie l Result [facility] [address] [place] [address], [place] [phone] * Falls Risk Assessment (07/11/2024) Falls Risk Assessment abstracted Historical Provider HEALTH MAINTENANCE Final Result * Depression Screening (07/11/2024) Depression Screening abstracted Historical Provider HEALTH MAINTENANCE Final Result * DXA BONE DENSITY STUDY 1+ SITS AXIAL SKEL (08/17/2023 2:28 PM EDT) Anatomical Region Laterality Modality Bone Densitometr y 05/11/2023 1:24 PM EDT Narrative 08/18/2023 8:10 AM EDT BONE DENSITY SCAN (DEXA): FINDINGS: Lumbar Spine T-score is -0.3. ?? (SD relative to 20-29 y/o adult) Z-score is 2.4. ??(SD relative to age matched peers) This is considered normal by WHO criteria. Left Hip T-score is -0.3. Z-score is 2.0. This is considered normal by WHO criteria. Comparison exam(s): 07/03/2018. ??11.0% loss of left hip bone mineral density and 5.4% loss of lumbar spine bone mineral density, both statistically significant at the 95% confidence level. IMPRESSION: IMPRESSION: ?? Normal bone mineral density by WHO criteria. The [facility] Department of Internal Medicine recommends using National Osteoporosis Foundation (NOF) guidelines in treatment decisions related to osteoporosis. NOF guidelines suggest considering treatment for postmenopausal women and men aged 50 or older presenting with the following: History of hip or vertebral fracture. T-score = -2.5 (DXA) at the femoral neck, total hip, or spine, after appropriate evaluation to exclude secondary causes. Low bone mass (T-score between -1.0 and -2.5 at the femoral neck or spine) AND a 10-year probability of a hip fracture = 3% OR a 10-year probability of a major osteoporosis-related fracture = 20% based on the [place]-adapted WHO algorithm Please note that all treatment decisions require clinical judgment and consideration of individual patient factors, including patient preferences, co-morbidities, previous drug use, risk factors not captured in the FRAX model (e.g., frailty, falls, vitamin D deficiency, increased bone turnover, interval significant decline in bone density) and possible under- or over-estimation of fracture risk by FRAX. Optional alternative screening schedule based on nubia Acevedo., [facility] November 24, 2011 for patients with osteopenia (based on hip BMD T-score) is as follows: * ??advanced osteopenia (T scores -2.00 to -2.49), BMD testing every year * ??moderate osteopenia (T scores -1.50 to -1.99), BMD testing every 5 years mild osteopenia or normal BMD (T scores -1.50 and higher), BMD testing every 15 years Procedure Note Lenore Perez MD - 12/11/2023 BONE DENSITY SCAN (DEXA): FINDINGS: Lumbar Spine T-score is -0.3. (SD relative to 20-29 y/o adult) Z-score is 2.4. (SD relative to age matched peers) This is considered normal by WHO criteria. Left Hip T-score is -0.3. Z-score is 2.0. This is considered normal by WHO criteria. Comparison exam(s): 07/03/2018. 11.0% loss of left hip bone mineraldensity and 5.4% loss of lumbar spine bone mineral density, both statistically significant at the95% confidence level. IMPRESSION: IMPRESSION: Normal bone mineral density by WHO criteria. The [facility] Department of Internal Medicine recommendsusing National Osteoporosis Foundation (NOF) guidelines in treatment decisions related toosteoporosis. NOF guidelines suggest considering treatment for postmenopausal women and menaged 50 or older presenting with the following: History of hip or vertebral fracture. T-score = -2.5 (DXA) at the femoral neck, total hip, or spine, afterappropriate evaluation to exclude secondary causes. Low bone mass (T-score between -1.0 and -2.5 at the femoral neck or spine)AND a 10-year probability of a hip fracture = 3% OR a 10-year probability of a majorosteoporosis-related fracture = 20% based on the [place]-adapted WHO algorithm Please note that all treatment decisions require clinical judgment andconsideration of individual patient factors, including patient preferences, co- morbidities,previous drug use, risk factors not captured in the FRAX model (e.g., frailty, falls, vitaminD deficiency, increased bone turnover, interval significant decline in bone density) andpossible under- or over-estimation of fracture risk by FRAX. Optional alternative screening schedule based on ted Acevedo al., [place] 2011 for patients with osteopenia (based on hip BMD T-score) is as follows: * advanced osteopenia (T scores -2.00 to -2.49), BMD testing every year * moderate osteopenia (T scores -1.50 to -1.99), BMD testing every 5years mild osteopenia or normal BMD (T scores -1.50 and higher), BMD testingevery 15 years us Kerry Hu NP IMG DXA PROCEDURES Final Resul t from Last 3 Months or Most Recently Relevant to Health Maintenance Insurance MEDICARE [facility] Advance Directives Documents on File Type Date Recorded Patient Exchange Floor Manager Expl anation Advance Directives and Living Will 11/26/2024 7:28 AM LIFE TREARTMENT Advance Directives and Living Will 11/26/2024 7:27 AM * Full Code - Default (Latest Code Status on File) Date Activated Date Inactivated Comments 11/26/2024 7:56 AM 11/26/2024 2:05 PM This is orde r is used when code status has not been discussed with the patient, or code status is otherwise unknown/unconfirmed To update the patient's code status, place a code status order. Do not modify or discontinue any currently active code status orders. Care Teams Practice Representative Relationship Specialty Start Date End Date Jerry Taylor MD [address] [place] [address] PCP - General 07/16/24
--- OUTSIDE RECORDS SUMMARY | 2025-03-20 12:27 | XMS_ITS | Encounter Summary ---
Author Organization [facility] Address [address] [place] [address] Care Team Providers Care Endo Tech Name Role Phone Dannie Coleman MD [facility] Jerry Taylor MD Primary Care Provider [phone] Encounter Details Date Type Department Care Team Description 03/09/2023 Pt. Non Urgent Medical Question Adult Medicine B - [address] [address] Kerry Hu, MANFRED [address] [place] [phone] Social History Tobacco Use Types Packs/Day Years [...] on file documented as of this encounter Miscellaneous Notes * Telephone Encounter - Mona Dupree M.A. - 03/10/2023 8:27 AM EDTFrom: Caren [place] To: T Mayte Sent: 03/09/2023 5:13 PM EDT Subject: Health Care Proxy Good evening Kerry, I wanted to ask how I go about making my granddaughter, Amber, my health care proxy. Is that something I do through you guys since you are my primary care provider? Thank you and have a nice rest of your day. documented in this encounter Plan of Treatment Not on file documented as of this encounter Visit Diagnoses Not on filedocumented in this encounter Care Teams Endo Tech Relationship Specialty Start Date End Date Dannie Coleman MD PCP - Studio Technician 02/11/10 Jerry Taylor MD [address] [place] [address] PCP - General Internal Medicine 01/22/18 documented as of this encounter
--- OUTSIDE RECORDS SUMMARY | 2025-03-20 12:27 | XMS_ITS | Encounter Summary ---
Author Organization [facility] Address [address] [place] [address] Care Team Providers Care Intelligence Research Specialist Name Role Phone Dannie Coleman MD [facility] Jerry Taylor MD Primary Care Provider [phone] Encounter Details Date Type Department Care Team Description 08/06/2024 Java Golden Gate Developer Report Medical Records [address] [place] [address] Triston Underwood MD Social History Tobacco Use [...] on filedocumented in this encounter Care Teams Intelligence Research Specialist Relationship Specialty Start Date End Date Dannie Coleman MD PCP - Weld Fitter 02/11/10 Jerry Taylor MD [address] [place] [address] PCP - General Internal Medicine 01/22/18 documented as of this encounter
--- OUTSIDE RECORDS SUMMARY | 2025-03-20 12:27 | XMS_ITS | Encounter Summary ---
Author Organization [facility] Address [address] [place] [address] Care Team Providers Care Industrial Ecologist Name Role Phone Dannie Coleman MD [facility] Jerry Taylor MD Primary Care Provider [phone] Encounter Details Date Type Department Care Team Description 08/12/2024 Meeting Planner Report Medical Records [address] [place] [address] Charlene Tamayo MD Social History Tobacco Use [...] on filedocumented in this encounter Care Teams Industrial Ecologist Relationship Specialty Start Date End Date Dannie Coleman MD PCP - Signaling Project Engineer 02/11/10 Jerry Taylor MD [address] [place] [id number] PCP - General Internal Medicine 01/22/18 documented as of this encounter
--- OUTSIDE RECORDS SUMMARY | 2025-03-20 12:27 | XMS_ITS | Encounter Summary ---
Author Organization [facility] Address [address] [place] [address] Care Team Providers Care Inspector Shells Name Role Phone Dannie Coleman MD [facility] Jerry Taylor MD Primary Care Provider [phone] Encounter Details Date Type Department Care Team Description 08/01/2020 Pt. Non Urgent Medical Question Adult Medicine - [place] [address] [place] [address] Kerry Hu, PROFESSOR OF CRIMINAL JUSTICE [address] [place] [address] Social History Tobacco Use Types Packs/Day Years [...] Exposure Response Date Recorded In the last month, have you been in contact with someone who was confirmed or suspected to have Coronavirus / COVID-19? No / Unsure 07/30/2020 9:48 AM EDT documented as of this encounter Progress Notes * Keyla RodrigesP.N. - 08/03/2020 8:01 AM EDTFrom: Caren Clayton To: Kerry Hu NP Sent: 08/01/2020 2:05 PM EDT Subject: Reply to test results Hi Kerry, I am responding to your question regarding my symptoms and if they???ve gotten any better. They have not improved. I still cannot sleep on my back or right side due to it being so uncomfortable. Urination seems normal and there???s no pain when I urinate. Thank you, Caren documented in this encounter Plan of Treatment Not on file documented as of this encounter Visit Diagnoses Not on filedocumented in this encounter Care Teams Inspector Shells Relationship Specialty Start Date End Date Dannie Coleman MD PCP - Operational Test Mechanic 02/11/10 Jerry Taylor MD [address] [place] [address] PCP - General Internal Medicine 01/22/18 documented as of this encounter
--- OUTSIDE RECORDS SUMMARY | 2025-03-20 12:27 | XMS_ITS | Encounter Summary ---
Author Organization [facility] Address [address] [place] [address] Care Team Providers Care Enterprise Software Developer Name Role Phone Dannie Coleman MD [facility] Jerry Taylor MD Primary Care Provider [phone] Encounter Details Date Type Department Care Team Description 08/09/2019 Siding Mechanic Report Medical Records [address] [place] [address] Sandee Carcamo Social History Tobacco Use Types Packs/Day Years [...] on filedocumented in this encounter Care Teams Enterprise Software Developer Relationship Specialty Start Date End Date Dannie Coleman MD PCP - Machine Ii Trimmer 02/11/10 Jerry Taylor MD [address] [place] [address] PCP - General Internal Medicine 01/22/18 documented as of this encounter
--- OUTSIDE RECORDS SUMMARY | 2025-03-20 12:27 | XMS_ITS | Encounter Summary ---
Author Organization [facility] Address [address] [place] [address] Care Team Providers Care Product Development Actuary Name Role Phone Dannie Coleman MD Unavailable Unavailable Jerry Taylor MD Primary Care Provider [phone] Encounter Details Date Type Department Care Team Description 04/06/2018 Release of Information Medical Records [address] [place] [address] Abstract, Provider Social History Tobacco Use Types Packs/Day Years Used Date Smoking Tobacco: Never Assessed Sex Assigned at Date Recorded Female 09/06/2020 6:[address] Job Start Date Occupation Industry Not on file Not on file Not on file documented as of this encounter Plan of Treatment Not on file documented as of this encounter Visit Diagnoses Not on filedocumented in this encounter Care Teams Product Development Actuary Relationship Specialty Start Date End Date Dannie Coleman MD PCP - Psychiatric Mental Health Nurse 02/11/10 Jerry Taylor MD [address] [place] [address] PCP - General Internal Medicine 01/22/18 documented as of this encounter
--- OUTSIDE RECORDS SUMMARY | 2025-03-20 12:27 | XMS_ITS | Encounter Summary ---
Author Organization [facility] Address [address] [place] [address] Care Team Providers Care Ad Operations Coordinator Name Role Phone Dannie Coleman MD Unavailable Unavailable Jerry Taylor MD Primary Care Provider [phone] Reason for Visit * Reason Onset Date Comments Testing 06/05/2023 Encounter Details Date Type Department Care Team Description 06/05/2023 Telephone Cardio PVCA Diag Testing [address] [facility] [address] [place] [address] Kerry Hu, CUSTOMER ACCOUNT EXECUTIVE [address] [place] [address] Testing Social History Tobacco Use Types Packs/Day Years [...] suspected to have Coronavirus/COVID-19? No / Unsure 05/31/2023 9:51 AM EDT documented as of this encounter Miscellaneous Notes * Telephone Encounter - Marcela Concepcion - 06/06/2023 9:54 AM EDT Good morning, Thank you. * Telephone Encounter - Kerry Hu NP - 06/05/2023 4:48 PM EDT The order is associated already with the following codes; according to the paperwork that you emailed me Raynaud's phenomena is a qualifying diagnosis. Dx: Burning sensation [R20.8 (ICD-10-CM)]; Hyperlipidemia, unspecified hyperlipidemia type [E78.5 (ICD-10-CM)]; Raynaud's disease without gangrene [I73.00 (ICD-10-CM)] * Telephone Encounter - Marcela Concepcion - 06/05/2023 4:21 PM EDT This patient is coming in for a ??ARTERIAL/ROLAND The order has a diagnosis of Burning sensation Please review your office note to see if there is another diagnosis including signs/symptoms that can be associated with this test and update the order as the associated diagnosis is not considered to have an appropriate use criterIa for the test ordered. Otherwise, the patients appointment may need to be cancelled or they may have an out of pocket expense for the test.??Thank you! documented in this encounter Plan of Treatment Not on file documented as of this encounter Visit Diagnoses Not on filedocumented in this encounter Care Teams Ad Operations Coordinator Relationship Specialty Start Date End Date Dannie Coleman MD PCP - Business Analyst Ecommerce 02/11/10 Jerry Taylor MD [address] [place] [address] PCP - General Internal Medicine 01/22/18 documented as of this encounter
--- OUTSIDE RECORDS SUMMARY | 2025-03-20 12:27 | XMS_ITS | Clinical Summary ---
Author Organization [facility] Address [address] [facility] [address] [place] [address] Phone Care Team Providers Care Supervisor Curing Room Name Role Phone Jerry Odonnell Primary Care Provider [phone] Allergies No known active allergies Medications levothyroxine (SYNTHROID, LEVOTHROID) 75 MCG tablet Take 75 mcg by mouth 1 (one) time each day 07/12/2022 Active ALPRAZolam (XANAX) 0.25 MG tablet TAKE ONE TABLET BY MOUTH DAILY NEEDED FOR ANXIETY. 05/31/2022 Active Active Problems Problem Noted Date Diagnosed Date Chronic kidney disease stage 3 04/16/2018 Depressive disorder 04/16/2018 Hyperlipidemia 04/16/2018 Raynaud's disease 04/16/2018 Resolved Problems Problem Noted Date Diagnosed Date Resolved Date Anxiety disorder 04/16/2018 09/05/2022 Overview (09/05/2022): Follows with Dr Caruso Bilateral cataracts 04/16/2018 09/05/20 Diverticulosis of colon 04/16/201808/08 Fatty liver 04/16/2018 09/05/2022 History of dysplasia of cervix 04/16/2018 09/05/2022 History of hepatitis C 04/16/201809/05 History of malignant basal c ell neoplasm of skin 04/16/2018 09/05/2022 Overview (09/05/2022): 01/21/09 L upper chest History of squamous cell carcinoma 04/16/2018 09/05/2022 Overview (09/05/2022): 04/08/11 distal L leg History of traumatic vertebral fracture 04/16/2018 09/05/2022 Hypothyroidism 04/16/2018 09/05/2022 Overview (09/05/2022): LEvothyroxine 75 mcg Panic disorder without agoraphobia 04/16/2018 09/05/2022 Immunizations Immunization Administration Dates Next Due Pneumococcal Conjugate 13-Valent 03/23/2015 Pneumococcal Polysaccharide 04/25/2018 Tdap 04/25/2018 Family History Medical History Relation Comments Aneurysm Mother Kidney disease Mother's Brother Relation Status Comments Mother Mother's Brother Social History Tobacco Use Types Packs/Day Years Used Date Smoking Tobacco: Never Smokeless Tobacco: Never Tobacco Cessation:Counseling Given: Not Answered Alcohol Use Standard Drinks/Week Comments Not Currently 0 (1 standard drink = 0.6 oz pur e alcohol) Comments Unknown Sex and Gender Information Value Date Recorded Sex Assigned at Not on file Legal Sex Female 2:22 PM EDT Gender Identity Not on file Sexual Orientation Not on file Last Filed Vital Signs Vital Sign Reading Time Taken Comments Blood Pressure 132/66 02/27/2023 1:12 PM EDT Pulse 79 02/27/2023 1:12 PM EDT Temperature - - Respiratory Rate - - Oxygen Saturation 96% 02/27/2023 1:12 PM EDT Inhaled Oxygen Concentration - - Weight 69.3 kg (152 lb 12.8 oz) 02/27/2023 1:12 PM EDT Height - - Body Mass Index - - Plan of Treatment Health Maintenance Due Date Last Done Comments Influenza Vaccine (Season Ended) 2025 Pneumococcal Vaccine: 50+ Years Completed 04/25/2018, 03/23/2015 Hepatitis B Vaccine Aged Out No longe r eligible based on patient's age to complete this topic Insurance Medicare [facility] Medicare [facility] Care Teams Supervisor Curing Room Relationship Specialty Start Date End Date JorgeJerry fisher [address] [place] [id number] PCP - General Internal Medicine 09/05/22
--- OUTSIDE RECORDS SUMMARY | 2025-03-20 12:27 | XMS_ITS | Encounter Summary ---
Author Organization [facility] Address [address] [place] [address] Care Team Providers Care Heater Furnace Name Role Phone Dannie Coleman MD [facility] Jerry Taylor MD Primary Care Provider [phone] Encounter Details Date Type Department Care Team Description 02/27/2023 Casework Supervisor Report Medical Records [address] [place], [place] [id number] [place] [address], [facility] Tobacco Use Types Packs/Day Years Used Date [...] on filedocumented in this encounter Care Teams Heater Furnace Relationship Specialty Start Date End Date Dannie Coleman MD PCP - Meat Processor 02/11/10 Jerry Taylor MD [address] [place] [address] PCP - General Internal Medicine 01/22/18 documented as of this encounter
--- OUTSIDE RECORDS SUMMARY | 2025-03-20 12:27 | XMS_ITS | Encounter Summary ---
Author Organization [facility] Address [address] [place] [address] Care Team Providers Care Manager Inside Name Role Phone Jerry Taylor MD Primary Care Provider [phone] Encounter Details Date Type Department Care Team (Late st Contact Info) Description 09/04/2024 1:15 PM EDT Hospital Encounter TH HISTORIC ENCOUNTERS EASTERN CONVERSION ONLY Paul Emmanuel MD [address] [place] [address] Social History Tobacco Use Types Packs/Day Years [...] for your loved ones. For example, child care associate or elderly care for an older adult? [...] PM EDT Office Visit [facility] [address] [facility] [address] [place] [address] Whitney Adames MD [address] [facility] [address] [place] [address] 07/25/2025 1:00 PM EDT Office Visit Internal Medicine - [address] [address] Jerry Taylor MD [address] [place] [address] documented as of this encounter Visit Diagnoses Not on filedocumented in this encounter Care Teams Manager Inside Relationship Specialty Start Date End Date Jerry Taylor MD [address] [place] [address] PCP - General 07/16/24 documented as of this encounter
--- OUTSIDE RECORDS SUMMARY | 2025-03-20 12:27 | XMS_ITS | Encounter Summary ---
Author Organization [facility] Address [address] [place] [address] Care Team Providers Care Electrician Research Name Role Phone Dannie Coleman MD Unavailable Unavailable Jerry Taylor MD Primary Care Provider [phone] Encounter Details Date Type Department Care Team Description 10/25/2023 Orders Only Medical Records [address] [place] [address] Charlene Tamayo MD Social History Tobacco Use [...] Date/Time Associated Diagnosis Comments OUTSIDE LAB Routine 10/16/2023 documented in this encounter Results * OUTSIDE LAB (10/16/2023) Charlene Tamayo MD LAB documented in this encounter Visit Diagnoses Not on filedocumented in this encounter Care Teams Electrician Research Relationship Specialty Start Date End Date Dannie Coleman MD PCP - Ink Technician 02/11/10 Jerry Taylor MD [address] [place] [address] PCP - General Internal Medicine 01/22/18 documented as of this encounter
--- OUTSIDE RECORDS SUMMARY | 2025-03-20 12:27 | XMS_ITS | Encounter Summary ---
Author Organization [facility] Address [address] [place] [address] Care Team Providers Care Parts Room Associate Name Role Phone Dannie Coleman MD [facility] Jerry Taylor MD Primary Care Provider [phone] Encounter Details Date Type Department Care Team Description 08/02/2018 Client Solutions Manager Report Medical Records [address] [place] [address] Charlene Tamayo MD Social History Tobacco Use [...] on filedocumented in this encounter Care Teams Parts Room Associate Relationship Specialty Start Date End Date Dannie Coleman MD PCP - Medical Office Supervisor 02/11/10 Jerry Taylor MD [address] [place] [address] PCP - General Internal Medicine 01/22/18 documented as of this encounter
--- OUTSIDE RECORDS SUMMARY | 2025-03-20 12:27 | XMS_ITS | Encounter Summary ---
Author Organization [facility] Address [address] [place] [address] Care Team Providers Care Production Staff Worker Name Role Phone Dannie Coleman MD Unavailable Unavailable Jerry Taylor MD Primary Care Provider [phone] Encounter Details Date Type Department Care Team Description 06/26/2023 SCAN Medical Records [address] [place] [address] [facility] Social History Tobacco Use Types Packs/Day Years [...] on filedocumented in this encounter Care Teams Production Staff Worker Relationship Specialty Start Date End Date Dannie Coleman MD PCP - Office Lead 02/11/10 Jerry Taylor MD [address] [place] [address] PCP - General Internal Medicine 01/22/18 documented as of this encounter
[2025-03-20 17:59] LABS: Anion Gap 13 (12-20); Blood Urea Nitrogen 22 mg/dL (9-16); Calcium 9.5 mg/dL (8.4-10.2); Carbon Dioxide 26 mmol/L (22-29); Chloride 107 mmol/L (96-108); Estimated Glomerular Filt Rate 43; Sodium 141 mmol/L (135-145)
== END 2025-03-20 11:13 | disposition home or self-care (01) ==
LOC: HO.HKASLDS 11:12
PROVIDERS: Visit Provider Internal Medicine Nephrology
DX: N18.31 Chronic kidney disease, stage 3a (principal)
CPT/HCPCS: 36415; 80051; 82310; 82565; 84520

== ENCOUNTER 2025-03-27 13:40 | Outpatient (AMB) | payer MEDICARE, SELFPAY ==
--- NOTE | 2025-03-27 13:51 | HO.NEPHOV ---
Vital Signs 03/27/25 14:03 Height 5 ft 6 in Weight 146 lb 4 oz BMI 23.6 BP 120/50 L Blood Pressure Location Lt brachial Position Sitting Intake Visit Reasons: 8 Month F/U-Conf Heavy Equipment Mechanic Required: No Accompanied by: Self / Same As Patient Allergies No Known Allergies Allergy (Verified 03/27/25 14:03) HPI Comments Details: Caren was seen in follow-up of her chronic kidney disease. She has no history of diabetes mellitus or hypertension. She does not take any excessive nonsteroidal anti-inflammatories. She denies having dysuria, hematuria, flank pain. She has remote history of hepatitis C which was treated. Her mother's brother had renal issues. She denies taking any anti-inflammatory medications. She does not have any nausea, vomiting, diarrhea, pedal edema or orthostatic symptoms. She maintains good hydration. She had a lumpectomy in Nov 2024 for breast cancer. She feels well [facility] Medical History Breast cancer CKD (chronic kidney disease) stage 3, GFR 30-59 ml/min Surgical History H/O lumpectomy History of hysterectomy Family History Daughter Breast cancer Mother Abdominal aneurysm Father Meningitis Sister COPD (chronic obstructive pulmonary disease) Social History Alcohol intake: former Patient Tobacco Use Status: Never used Tobacco Use of substances other than those prescribed or required for medical reasons: No Review of Systems Const All systems reviewed & are unremarkable except as noted in HPI and below Physical Exam Vital Signs: Last Vital Signs BP 120/50 L 03/27/25 14:03 BMI result Body Mass Index 23.6 Const General: comfortable and no acute distress Orientation/consciousness: patient oriented x3 HEENT Head: Yes normocephalic Mouth: Normal oral and palatal mucosa present Eyes EOM: EOMs intact bilaterally Neck Neck: Yes supple Resp Auscultation: clear to auscultation bilaterally Cardio Jugular venous distension: no JVD Rate: regular rate GI Palpation (GI): Soft to palpation Auscultation: normal bowel sounds General: Yes no CVA tenderness Back/Spine/Pelvis Back: no CVA tenderness Skin General skin exam: no rashes or lesions noted Neuro General: patient oriented x3 and moves all extremities Extrem General: Yes no pedal edema Results Reviewed Nephrology Results: Sodium 141 mmol/L (135-145) 03/20/25 Potassium 5.0 mmol/L (3.3-5.1) 03/20/25 Chloride 107 mmol/L (96-108) 03/20/25 Carbon Dioxide 26 mmol/L (22-29) 03/20/25 BUN 22 mg/dL (9-16) H 03/20/25 Creatinine 1.20 mg/dL (0.5-1.4) 03/20/25 Calcium 9.5 mg/dL (8.4-10.2) 03/20/25 Assessment & Plan Assessment & Plan (1) CKD (chronic kidney disease) stage 3, GFR 30-59 ml/min: Code(s): N18.30 - Chronic kidney disease, stage 3 unspecified Category: Medical Qualifiers: Chronic kidney disease stage 3 subtype: stage 3a (GFR 45-59) Qualified Code(s): N18.31 - Chronic kidney disease, stage 3a Plan Caren has CKD 3a. It probably is due to loss of GFR due to unknown renal insult the past along with age-related loss of renal function. She likely had renovascular disease given H/O PAD. Her serum creatinine was 1.24 in 2019, 1.29 in 2021 and 1.20 in 2022. Her serum creatinine is stable. Her blood pressure has been normal. She has no history of proteinuria. Previous renal ultrasound showed right kidney of 8.7 cm and left kidney of 8.3 cm. She avoids nonsteroidal anti-inflammatories and maintain good hydration. She has mild atherosclerotic vascular disease on her lower extremities. Her calcium and phosphorus were normal in the past. Her renal functions are stable. I did not make any medication changes today. All questions answered. Orders: Orders Creatinine 1 Year N18.31 - Chronic kidney disease, stage 3a Electrolytes 1 Year N18.31 - Chronic kidney disease, stage 3a Protein Creatinine Ratio, Ur 1 Year N18.31 - Chronic kidney disease, stage 3a Blood Urea Nitrogen 1 Year N18.31 - Chronic kidney disease, stage 3a Coding Level of Care Code Est Pt Level 4 (61510) Diagnoses Stage 3a chronic kidney disease N18.31 Chronic kidney disease stage 3 subtype: stage 3a (GFR 45-59)
--- OUTSIDE RECORDS SUMMARY | 2025-03-27 13:51 | XMS_ITS | Clinical Summary ---
Author Organization [facility] Address [address] [place] [address] Care Team Providers Care Vp Hr Diversity Name Role Phone Jerry Taylor MD Primary Care Provider [phone] Allergies No known active allergies Medications Medication [...] age to complete this topic Care Teams Vp Hr Diversity Relationship Specialty Start Date End Date Jerry Taylor MD [address] [place] [address] PCP - General Internal Medicine 07/16/24
[2025-03-27 14:03] VITALS: BP 120/50; BMI 23.6
== END 2025-03-27 14:25 | disposition home or self-care (01) ==
LOC: HO.HKAS 13:41
PROVIDERS: Visit Provider Internal Medicine Nephrology
DX: N18.31 Chronic kidney disease, stage 3a (principal)
CPT/HCPCS: 99214

== ENCOUNTER → 2025-03-27 13:40 | Outpatient (BNVA) | payer MEDICARE, SELFPAY | PROVIDERS: Visit Provider Internal Medicine Nephrology | DX: N18.31 Chronic kidney disease, stage 3a (principal) | CPT/HCPCS: 99212 ==